=== PATIENT | female | born 1950 | race Caucasian/White ===

== ENCOUNTER 2021-07-01 20:13 | Inpatient (IN) ==
[2021-07-02] MEDS ORDERED: Melatonin 3 MG TABLET PO PRN (00:07)
[2021-07-02] MEDS ORDERED: Naloxone 0.4 MG/ML INJ IVP PRN (00:07)
[2021-07-02] MEDS ORDERED: *HR* OxyCODONE Immed Rel 5 MG TABLET PO PRN (00:07)
[2021-07-02] MEDS ORDERED: Ondansetron ODT 4 MG TAB.RAPDIS SL PRN (00:07)
[2021-07-02] MEDS ORDERED: Acetaminophen 325 MG TABLET PO PRN (00:07)
[2021-07-02] MEDS ORDERED: Perflutren Lipid Microsphere 1.3 ML in 0.9 % Sodium Chloride 8.7 ML IVP PRN (00:13)
[2021-07-02] MEDS ORDERED: *HR* Metoprolol 5 MG/5 ML VIAL IVP ONE ×2 (00:14→04:41)
[2021-07-02] MEDS ORDERED: *HR* Heparin 5,000 UNIT/ML VIAL IVP PRN ×2 (01:06)
[2021-07-02] MEDS ORDERED: *HR* Heparin 5,000 UNIT/ML VIAL IVP ONE (01:06)
[2021-07-02] MEDS ORDERED: Heparin 25,000UNIT/250ML 1/2NS 25,000 UNIT/250 ML IV.SOLN IVC SCH (01:15)
[2021-07-02 03:07] LABS: Basophils % 0.4 %; Eosinophils # 0.1 K/mcL (0.0-0.6); Eosinophils % 1.7 %; Hematocrit 37.7 % (35.3-44.9); Immature Granulocytes % 0.3 % (0-4); Lymphocytes # 2.3 K/mcL (0.6-4.6); Lymphocytes % 31.9 %; Mean Corpuscular HGB Conc 34.5 g/dL (31.6-35.5); Mean Corpuscular Hemoglobin 30.8 pg (28.0-33.3); Mean Corpuscular Volume 89.3 fL (83.0-100.0); Monocytes # 0.5 K/mcL (0.0-1.3); Monocytes % 6.4 %; Neutrophils # 4.3 K/mcL (1.6-8.9); Platelet Count 254 K/mcL (140-400); Red Blood Count 4.22 M/mcL (3.82-4.97); Red Cell Distribution Width 13.3 % (11.5-14.5); Segmented Neutrophils % 59.3 %; White Blood Count 7.2 K/mcL (4.3-11.1)
[2021-07-02 03:16] LABS: INR 1.2; Prothrombin Time 13.7 Seconds (9.4-12.1)
[2021-07-02 03:20] LABS: Alanine Aminotransferase 11 Units/L (7-52); Albumin 3.8 g/dL (3.5-5.7); Albumin/Globulin Ratio 1.3 (1.1-2.2); Alkaline Phosphatase 77 Units/L (34-104); Aspartate Amino Transferase 13 Units/L (13-39); BUN/Creatinine Ratio 17 (6-26); Bilirubin,Total 0.6 mg/dL (0.3-1.0); Blood Urea Nitrogen 10 mg/dL (8-23); Calcium 9.2 mg/dL (8.6-10.3); Carbon Dioxide 23 mEq/L (23-29); Chloride 104 mEq/L (98-107); Globulin 2.9 g/dL (2.4-3.5); Glucose 215 mg/dL (70-105); Heparin anti-factor XA UFH 1.16 IU/mL (0.30-0.70); Magnesium 1.8 mg/dL (1.6-2.6); Osmolality,Calculated 288 (280-300); Potassium 3.6 mEq/L (3.5-5.1); Sodium 136 mEq/L (136-145); Total Protein 6.7 g/dL (6.4-8.9); eGFR For African Americans > 60 (> 60); eGFR For Non-African Americans > 60 (> 60)
[2021-07-02] MEDS: Heparin 25,000 UNIT/250 ML 25,000 UNIT/250 ML IV.SOLN IVC SCH ×2 (03:26→17:45)
[2021-07-02] MEDS ORDERED: D5% in Water 1,000 ML IVC PRN (08:28)
[2021-07-02] MEDS ORDERED: *HR* Dextrose 50 % in Water (Syg) 50 ML SYRINGE IVP PRN (08:28)
[2021-07-02] MEDS ORDERED: Dextrose Gel 15 GM/37.5 ML TUBE PO PRN ×2 (08:28)
[2021-07-02] MEDS: Metoprolol XL (24 HR) Succ 50 MG TAB.ER.24H PO SCH (10:02)
[2021-07-02] MEDS: DilTIAZem 50 MG in 0.9 % Sodium Chloride 40 ML IVC SCH ×3 (13:02→23:30)
[2021-07-02] MEDS: Insulin LISPRO 300 UNITS/3 ML VIAL SUBQ SCH ×2 (13:12→17:49)
[2021-07-03] MEDS: DilTIAZem 50 MG in 0.9 % Sodium Chloride 40 ML IVC SCH ×3 (03:46→13:36)
[2021-07-03] MEDS: Heparin 25,000 UNIT/250 ML 25,000 UNIT/250 ML IV.SOLN IVC SCH (08:51)
[2021-07-03] MEDS: Metoprolol XL (24 HR) Succ 50 MG TAB.ER.24H PO SCH (08:52)
[2021-07-03] MEDS: Insulin LISPRO 300 UNITS/3 ML VIAL SUBQ SCH ×3 (08:52→16:45)
[2021-07-03] MEDS: DilTIAZem CD (24hr) 180 MG CAP.ER.24H PO SCH (12:10)
[2021-07-04] MEDS: Heparin 25,000 UNIT/250 ML 25,000 UNIT/250 ML IV.SOLN IVC SCH (00:05)
[2021-07-04 03:59] VITALS: PULSE 80
[2021-07-04 08:56] VITALS: BP 128/86; TEMP 97.8; O2SAT 97
[2021-07-04] MEDS: DilTIAZem CD (24hr) 180 MG CAP.ER.24H PO SCH (10:20)
[2021-07-04] MEDS: Metoprolol XL (24 HR) Succ 50 MG TAB.ER.24H PO SCH (10:20)
[2021-07-04] MEDS: Insulin LISPRO 300 UNITS/3 ML VIAL SUBQ SCH (10:21)
[2021-07-04] MEDS ORDERED: Warfarin perPT PO SCH (18:00)
== END 2021-07-04 12:30 | disposition home or self-care (01) | DRG 309 ==
LOC: 3NENU → SUATTDRO 23:18
PROVIDERS: ADMIT Internal Medicine; ATTEND Internal Medicine